=== PATIENT | female | born 2000 | race Caucasian/White ===

== ENCOUNTER 2020-10-16 17:33 | Observation (INO) | payer OTHER ==
--- OUTSIDE RECORDS SUMMARY | 2020-10-16 17:35 | XMS REPORT | Continuity of Care Document ---
:2000 Author Organization [facility] t Address [address] [place] [address] Care Team Providers Name Role Phone Unavailable Unavailable Unavailable Problems Condition Condition Condition Status Onset Resolution Last Treating Co mments Source Name Details Category Date Date Treatment Clinician Date Pain in Pain in Diagnosis [facility] right [facility]oria shoulder shoulder [facility] Scapular Scapular Diagnosis Active [facility] dyskinesis dyskinesis Mary kes - Memoria [facility] Bicipital Bicipital Diagnosis Active [facility] tendinitis tendinitis Mary kes - of right of right Memori a shoulder shoulder [facility] Allergies, Adverse Reactions, Alerts This patient has no known allergies or adverse reactions. Medications This patient has no known medications. Procedures This patient has no known procedures. Encounters Start End Encounter Admission Attending Care Care Encounter Source Date/Time Date/Time Type Type Clinicians Facility Department ID 2019-10-18 2019-10-18 [facility] [id number] [facility] 10:00:00 10:00:00 [facility] Results This patient has no known results.
[2020-10-16 17:54] VITALS: BMI 16.7
[2020-10-16 18:07] VITALS: O2SAT 99
[2020-10-16] MEDS ORDERED: MORPHINE 2 MG/ML SYR IV PRN (18:32)
[2020-10-16] MEDS ORDERED: NA CHLORIDE 0.9% 1,000 ML IV SCH (19:00)
[2020-10-16] MEDS ORDERED: METRONIDAZOLE 500mg IVPB 500 MG/100 ML BAG IV SCH (19:00)
[2020-10-16] MEDS: NA CHLORIDE 0.9% 1,000 ML IV SCH (19:57)
[2020-10-16] MEDS: METRONIDAZOLE 500mg IVPB 500 MG/100 ML BAG IV SCH (19:57)
[2020-10-16] MEDS ORDERED: LEVOFLOXACIN 750MG/D5W 150 ML IV SCH (20:00)
[2020-10-16 20:10] LABS: Absolute Lymphocytes (CBC) 1.9 K/uL (0.7-4.9); Basophils % 0.5 % (0-1.3); Hematocrit 26.5 % (36.0-45.0); Lymphocytes % 14.6 % (15.3-44.8); MPV 8.6 fL (7.6-11.3); RBC Red Blood Cell Count 3.56 M/uL (3.86-4.86)
[2020-10-16 20:22] LABS: BUN Blood Urea Nitrogen 7 mg/dL (7-18); Bicarbonate 25 mmol/L (21-32); Glucose Level 90 mg/dL (74-106); Potassium 4.3 mmol/L (3.5-5.1); Sodium Level 142 mmol/L (136-145)
[2020-10-16] MEDS: MORPHINE 2 MG/ML SYR IV SCH (21:22)
[2020-10-16] MEDS ORDERED: ONDANSETRON 4 MG/2 ML VIAL IV PRN (21:32)
[2020-10-16] MEDS ORDERED: ONDANSETRON 4 MG/2 ML VIAL ONE (21:55)
[2020-10-17] MEDS: NA CHLORIDE 0.9% 1,000 ML IV SCH ×2 (05:36→09:45)
[2020-10-17 05:39] LABS: Absolute Lymphocytes (CBC) 1.7 K/uL (0.7-4.9); Basophils % 0.3 % (0-1.3); Hematocrit 24.5 % (36.0-45.0); MPV 8.7 fL (7.6-11.3); RBC Red Blood Cell Count 3.25 M/uL (3.86-4.86)
[2020-10-17 05:50] LABS: BUN Blood Urea Nitrogen 6 mg/dL (7-18); Bicarbonate 22 mmol/L (21-32); Glucose Level 87 mg/dL (74-106); Potassium 3.5 mmol/L (3.5-5.1); Sodium Level 142 mmol/L (136-145)
[2020-10-17] MEDS: METRONIDAZOLE 500mg IVPB 500 MG/100 ML BAG IV SCH ×3 (06:00→13:55)
[2020-10-17] MEDS: MORPHINE 2 MG/ML SYR IV SCH (09:00)
--- NOTE | 2020-10-17 12:14 | HP ---
Date of Admission: 10/16/2020 History Of Present Illness: Ms. Choi is a 19-year-old female, who comes to us with severe intractab le abdominal pain. She was several hours ago in an outpatient emergency room diagnosed with gastroen teritis, cannot rule out appendicitis with WBC count of 25 and she was discharged home with the condi tion that she see a surgeon. She decided to come to our office today and when we saw her, we noticed the patient to have intractable right lower quadrant pain and suprapubic pain, nausea, vomiting, patricia rrhea. We decided to admit the patient in the hospital, obtain a stat CT scan repeat, and also IV hy dration, stool cultures. She does not remember eating out of the usual, although started after she a te a few days ago in a family dinner. After that few hours later, she developed this. She has been vomiting. She has not been able to take any fluid and severe diarrhea and has lower abdominal pain. Past Medical History: Anxiety. Medications: Reviewed. Allergies: NONE. Social History: She does smoke. She does drink alcohol. Family History: Noncontributory. Review of Systems: Nausea, vomiting, intractable abdominal pain, watery diarrhea. No fever. Ten points otherwise unrem arkable. Physical Examination: General: The patient is awake, alert. HEENT: Pupils are equal, reactive. Anicteric Neck: Supple. Chest: Clear. Abdomen: Lower abdominal pain with guarding present and tenderness. Pelvic: Deferred. Rectal: Deferred. Breasts: Deferred. Extremities: Good capillary refill. Neurologic: Cranial nerves 2 through 12 grossly within normal limits. Laboratory Data: Blood work shows WBC count of 25. Once again, she comes with a blood work done at another institution a few hours ago. The CAT scan also shows severe gastroenteritis, mainly in the r ight lower quadrant and suprapubic area. The appendix cannot be visualized. Plan: Admit, IV fluid, n.p.o. Repeat stat CAT scan to rule out appendicitis. IV hydration, correct electrolytes. Stool for ova and parasite. She got some of the stool cultures. Since we suspect ga stroenteritis probably bacterial related, we also going to start Levaquin and Flagyl. She understand s the options of laparoscopic diagnostic laparoscopy, possible appendectomy if needed with benefits, alternatives, and risks including, but not limited to infection, bleeding, damage to adjacent structu res, anesthesia complication, nonhealing wound, NV, and even . KAYA/PARISH Voice ID: [id number]
[2020-10-17 12:26] VITALS: BP 103/50; TEMP 97.9
--- NOTE | 2020-10-17 21:38 | RAD REPORT ---
EXAM DESCRIPTION: CT - Abdomen Pelvis Wo Contrast - 10/17/2020 6:54 am CLINICAL HISTORY: RLQ pain TECHNIQUE: Contiguous axial images obtained through the abdomen and pelvis without IV contrast. Yang nal and sagittal reformatted images were provided. This exam was performed according to our departmental dose-optimization program, which includes autom ated exposure control, adjustment of the mA and/or kV according to patient size and/or use of iterati ve reconstruction technique. COMPARISON: None available for comparison. FINDINGS: Lung bases: Clear Liver: Grossly unremarkable Gallbladder and biliary system: Layering density within the gallbladder lumen which may be related to gallstones and/or sludge. No gallbladder wall thickening or pericholecystic fluid. Pancreas: Grossly unremarkable Spleen: Grossly unremarkable Adrenals: Unremarkable Kidneys: No calculi. No hydronephrosis. Bowel: Enteric contrast is present throughout the large bowel and within the stomach and portions of the small bowel. No obstruction. No appreciable mucosal thickening. Appendix: The proximal to mid aspect of the appendix is normal in caliber and contrast-filled. There is a tubular unopacified structure just posterior to this which may represent the remainder of the ap pendix versus a decompressed unopacified small bowel loop. No appreciable surrounding inflammation. Urinary bladder: Unremarkable Reproductive: Unremarkable as visualized Lymph nodes: No pathologically enlarged lymph nodes. Peritoneum: No focal fluid collection. No free air. Vessels: No abdominal aortic aneurysm. Abdominal wall: Unremarkable Bones: Unremarkable IMPRESSION: 1. The proximal to mid aspect of the appendix is normal in caliber and contrast-filled . There is a tubular unopacified structure just posterior to this which may represent the remainder o f the appendix versus a decompressed small bowel loop. No appreciable surrounding inflammation. The p ossibility of early acute tip appendicitis cannot be excluded on the basis of this examination. 2. No renal, ureteral or bladder calculi. No evidence for renal obstruction. 3. Other findings as above. THIS REPORT CONTAINS FINDINGS THAT MAY BE CRITICAL TO PATIENT CARE: The findings were verbally discus sed via telephone conference with Dr. Manuel Dewey on 10/16/2020 11:17 PM CDT. The results were ackn owledged and understood. Electronically signed by: Cori Granados MD 10/16/2020 11:18 PM CDT Due to temporary technical issues with the PACS/Fluency reporting system, reports are being signed by the in house radiologists without review as a courtesy to insure prompt reporting. The interpreting radiologist is fully responsible for the content of the report.
== END 2020-10-17 16:16 | disposition home or self-care (01) ==
LOC: 2ND 17:33
PROVIDERS: ADMIT Surgery; ATTEND Surgery
DX: K52.9 Noninfective gastroenteritis and colitis, unspecified (principal); F41.9 Anxiety disorder, unspecified
CPT/HCPCS: 87045; 85025 ×2; 80048 ×2; 36415; 87177; 87046; 87209; 74176; J2270; J7030 ×2; J2405; G0379; G0378 ×2